=== PATIENT | male | born 1975 | race Caucasian/White ===

== ENCOUNTER 2017-03-08 17:54 | Emergency (ER) | payer BC, OTHER ==
[2017-03-08 19:24] VITALS: BP 124/81
[2017-03-08] MEDS ORDERED: Sulfamethox/Trimethoprim DS 800/160* TAB PO ONE (20:49)
--- NOTE | 2017-03-08 20:56 | ED ---
Skin Complaint - HPI Summary HPI Summary: 41 yr old male with complaint of redness and itching to the lower abdominal wall. Onset three days ago. Denies fever, chills. has no other complaints. Does not feel ill. No drainage from area. - History of Current Complaint Chief Complaint: UCSkin Time Seen by Provider: 03/08/17 20:44 Stated Complaint: SKIN COMPLAINT STOMACH Pain Intensity: 6 - Allergy/Home Medications Allergies/Adverse Reactions: Allergies Allergy/AdvReac Type Severity Reaction Status Date / Time Codeine AdvReac Intermediate Vomiting Verified 03/08/17 19:16 PMH/Surg Hx/FS Hx/Imm Hx Endocrine/Hematology History: Reports: Hx Diabetes - WAS TOLD HE HAS IT Cardiovascular History: Reports: Hx Hypertension - Surgical History Surgery Procedure, Year, and Place: GALL BLADDER REMOVAL, HERNIA REPAIR A BABY. 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 Denies: Traveled Outside the [place] in Last 30 Days - Family History Known Family History: Positive: Hypertension, Diabetes - Social History Alcohol Use: Rare Substance Use Type: Reports: None Smoking Status (MU): Never Smoked Tobacco Review of Systems Constitutional: Negative Positive: Other - cellulitis abdominal wall All Other Systems Reviewed And Are Negative: Yes Physical Exam Triage Information Reviewed: Yes Vital Signs On Initial Exam: Initial Vitals Temp Pulse Resp BP Pulse Ox 98.3 F 92 20 124/81 98 03/08/17 19:18 03/08/17 19:18 03/08/17 19:18 03/08/17 19:18 03/08/17 19:18 Vital Signs Reviewed: Yes Appearance: Positive: Well-Appearing, No Pain Distress, Obese Skin: Positive: Warm, Other - cellulitis with irriated hair follicle lower abdomen at the belt line. Head/Face: Positive: Normal Head/Face Inspection Eyes: Positive: EOMI ENT: Positive: Pharynx normal Neck: Positive: Supple, Nontender Respiratory/Lung Sounds: Positive: Clear to Auscultation, Breath Sounds Present Cardiovascular: Positive: RRR. Negative: Murmur Abdomen Description: Positive: Nontender, Other: - no abcess. Musculoskeletal: Positive: Strength/ROM Intact Neurological: Positive: Sensory/Motor Intact, Alert, Oriented to Person Place, Time, CN Intact II-III Psychiatric: Positive: Normal - Pauline Coma Scale Best Eye Response: 4 - Spontaneous Best Motor Response: 6 - Obeys Commands Best Verbal Response: 5 - Oriented Coma Scale Total: 15 Diagnostics - Vital Signs Vital Signs Temp Pulse Resp BP Pulse Ox 03/08/17 19:18 98.3 F 92 20 124/81 98 - Laboratory Lab Statement: Any lab studies that have been ordered have been reviewed, and results considered in the medical decision making process. Course/Dx - Course Course Of Treatment: 41 yr old with cellulitis to the lower abdominal wall. Plan bactrim DS and discharge to home. - Diagnoses Provider Diagnoses: Cellulitis Discharge - Discharge Plan Condition: Good Disposition: HOME Prescriptions: Sulfamethox/Trimethoprim DS* [Bactrim DS 800/160 TAB*] 1 tab PO BID #20 tab Patient Education Materials: Cellulitis (ED) Referrals: Jenna Najera PA [Primary Care Provider] - 2 Days
== END 2017-03-08 20:57 | disposition home or self-care (01) ==
LOC: UCCORT 17:54
DX: L03.311 Cellulitis of abdominal wall (principal); E11.9 Type 2 diabetes mellitus without complications; I10 Essential (primary) hypertension; E66.9 Obesity, unspecified; Z90.49 Acquired absence of other specified parts of digestive tract; Z98.52 Vasectomy status; Z88.5 Allergy status to narcotic agent
CPT/HCPCS: 99212; A9270-GY; G0463

== ENCOUNTER 2017-09-05 09:09 | Emergency (ER) | payer BC, OTHER ==
[2017-09-05 09:23] VITALS: BP 138/71
--- NOTE | 2017-09-05 10:04 | UC ---
Skin Complaint HPI - HPI Summary HPI Summary: RED SORE ON CHIN X 2 DAYS + AREA IS RED PAINFUL STARTED AN INGROWING HAIR ON HIS CHIN NO FEVER, NO CHILLS - History of Current Complaint Chief Complaint: UCSkin Time Seen by Provider: 09/05/17 09:50 Stated Complaint: SKIN COMPLAINT Hx Obtained From: Patient Onset/Duration: Gradual Onset, Lasting Days - 2, Still Present Timing: Constant Onset Severity: Moderate Current Severity: Moderate Pain Intensity: 5 Pain Scale Used: 0-10 Numeric Location: Face Character: Swelling, Pain, Redness, Raised, Painful Aggravating Factor(s): Touch Alleviating Factor(s): Nothing Associated Signs & Symptoms: Positive: Tenderness. Negative: Fever, Chills - Allergy/Home Medications Allergies/Adverse Reactions: Allergies Allergy/AdvReac Type Severity Reaction Status Date / Time codeine Allergy Vomiting Verified 09/05/17 09:21 Review of Systems Constitutional: Negative Eyes: Negative ENT: Negative Respiratory: Negative Is Patient Immunocompromised?: No All Other Systems Reviewed And Are Negative: Yes PMH/Surg Hx/FS Hx/Imm Hx Endocrine History: Diabetes Cardiovascular History: Hypertension - Surgical History Surgical History: Yes Surgery Procedure, Year, and Place: GALL BLADDER REMOVAL, HERNIA REPAIR A BABY. VASECTOMY AND HERNIA REPAIR-09/2014 - Family History Known Family History: Positive: Hypertension, Diabetes - Social History Alcohol Use: Rare Substance Use Type: None Smoking Status (MU): Never Smoked Tobacco Physical Exam Triage Information Reviewed: Yes Appearance: Well-Appearing, No Pain Distress, Well-Nourished Vital Signs: Initial Vital Signs Temp 98.3 F 09/05/17 09:17 Pulse 94 09/05/17 09:17 Resp 16 09/05/17 09:17 BP 138/71 09/05/17 09:17 Pulse Ox 97 09/05/17 09:17 Eye Exam: Normal Eyes: Positive: Conjunctiva Clear ENT: Positive: Normal ENT inspection, Hearing grossly normal, Pharynx normal Neck: Positive: Supple, Nontender, No Lymphadenopathy Respiratory: Positive: Chest non-tender, Lungs clear, Normal breath sounds Cardiovascular: Positive: RRR, No Murmur, Pulses Normal Skin: Positive: Other - + CELLULITIS CHIS, ERYTHEMA, SWELLEN , TENDER Course/Dx - Diagnoses Provider Diagnoses: CELLULITIS FACE Discharge - Sign-Out/Discharge Documenting (check all that apply): Patient Departure - Discharge Plan Condition: Stable Disposition: HOME Prescriptions: Cephalexin CAP* [Keflex CAP*] 500 mg PO TID #30 cap Patient Education Materials: Cellulitis (ED) Referrals: Jenna Najera PA [Primary Care Provider] - 7 Days - Billing Disposition and Condition Condition: STABLE Disposition: Home
== END 2017-09-05 09:58 | disposition home or self-care (01) ==
LOC: UCCORT 09:09
DX: L03.211 Cellulitis of face (principal); Z88.5 Allergy status to narcotic agent; E11.9 Type 2 diabetes mellitus without complications; I10 Essential (primary) hypertension
CPT/HCPCS: 99212; G0463

== ENCOUNTER 2017-12-29 19:56 | Emergency (ER) | payer BC ==
[2017-12-29 21:11] VITALS: BP 120/74
--- NOTE | 2017-12-29 21:20 | UC ---
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 Pt states pain radiates from base of right side occipital bone to upper back and to right shoulder. Neck is painful to move and pt c/o neck stiffness. - History of Current Complaint Chief Complaint: UCUpperExtremity Stated Complaint: NECK PAIN Time Seen by Provider: 12/29/17 21:11 Hx Obtained From: Patient Onset/Duration Of Injury/Symptoms: Hours Mechanism Of Injury: No Known Trauma Timing: Constant Onset/Duration: Sudden Onset, Lasting Hours, Still Present Severity: Moderate Pain Intensity: 4 Character: Dull, Aching, Stiff, Spasmotic Aggravating Factors: Position, Movement Alleviating Factors: Position Associated Signs & Symptoms: Positive: Negative - Risk Factors Meningitis Risk Factors: Negative - Allergies/Home Medications Allergies/Adverse Reactions: Allergies Allergy/AdvReac Type Severity Reaction Status Date / Time codeine Allergy Vomiting Verified 12/29/17 21:02 Home Medications: Home Medications Ferrous Sulfate [Iron] 325 mg PO DAILY 12/29/17 [History Confirmed 12/29/17] Meloxicam [Mobic] 15 mg PO DAILY 12/29/17 [History Confirmed 12/29/17] PMH/Surg Hx/FS Hx/Imm Hx Previously Healthy: Yes - Surgical History Surgical History: Yes Surgery Procedure, Year, and Place: GALL BLADDER REMOVAL, HERNIA REPAIR A BABY. VASECTOMY AND HERNIA REPAIR-09/2014. Tendon repair right index finger - Family History Known Family History: Positive: Hypertension, Diabetes - Social History Occupation: Employed Full-time Lives: With Family Alcohol Use: Rare Substance Use Type: None Smoking Status (MU): Never Smoked Tobacco Have You Smoked in the Last Year: No Review Of Systems Constitutional: Positive: Negative Skin: Positive: Negative Eyes: Positive: Negative ENT: Positive: Negative Respiratory: Positive: Negative Cardiovascular: Positive: Negative Gastrointestinal: Positive: Negative Genitourinary: Positive: Negative Musculoskeletal: Positive: Decreased ROM, Myalgia Neurological: Positive: Negative Psychological: Positive: Negative All Other Systems Reviewed And Are Negative: No Physical Exam Triage Information Reviewed: Yes Appearance: Pain Distress Vital Signs: Initial Vital Signs Temp 97.6 F 12/29/17 21:06 Pulse 81 12/29/17 21:06 Resp 18 12/29/17 21:06 BP 120/74 12/29/17 21:06 Pulse Ox 97 12/29/17 21:06 Vital Signs Reviewed: Yes Eye Exam: Normal ENT: Positive: Hearing grossly normal Neck: Positive: Other: - decreased ROM, Respiratory Exam: Normal Cardiovascular Exam: Normal Musculoskeletal: Positive: ROM Limited @ - neck, Other: - c/o pain with palpation at base of right nixon eoccipital bone and upper back Neurological Exam: Normal Psychological Exam: Normal Skin Exam: Normal Neck Pain Course/Dx - Differential Dx/Diagnosis Differential Dx/HQI/PQRI: Sprain, Strain, Torticollis Provider Diagnoses: torticollis Discharge - Sign-Out/Discharge Documenting (check all that apply): Patient Departure All imaging exams completed and their final reports reviewed: No Studies - Discharge Plan Condition: Stable Disposition: HOME Prescriptions: Cyclobenzaprine TAB* [Flexeril 10 MG TAB*] 10 mg PO Q8H PRN #15 tab PRN Reason: Pain Patient Education Materials: Spasmodic Torticollis (ED) Referrals: Jenna Najera PA [Primary Care Provider] - If Needed - Billing Disposition and Condition Condition: STABLE Disposition: Home
== END 2017-12-29 21:28 | disposition home or self-care (01) ==
LOC: UCCORT 19:56
DX: M43.6 Torticollis (principal); Z88.5 Allergy status to narcotic agent
CPT/HCPCS: 99212; G0463

== ENCOUNTER 2018-05-03 19:57 | Emergency (ER) | payer BC ==
--- OUTSIDE RECORDS SUMMARY | 2018-05-03 20:13 | XMS REPORT | Continuity of Care Document ---
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 Jenna Najera RPAC Primary Care Physician Unavailable Payers Date Identification Numbers Payment Provider Subscriber Policy Number: [id number] Rivera Gordon PayID: [id number] [address] [address] Policy Number: [id number] Rivera Gordon Group Number: [id number] [address] PayID: [id number] [place] [address] Advance Directives Description No Information Available Problems Date Description Provider Status Onset: 07/20/2011 Benign essential hypertension Jenna Najera RPAC Active Onset: 12/22/2010 Obesity Jenna Najera RPAC Active Onset: 07/06/2016 Decreased testosterone level Jenna Najera RPAC Active Note: 2016 Onset: 09/10/2014 Hypertriglyceridemia Jenna Najera RPAC Active Note: with low HDL Onset: 09/10/2014 Hyperglycemia Jenna Najera RPAC Active Note: noted 10/2012 Onset: 11/25/2014 Methicillin resistant Staphylococcus Jenna Najera RPAC Active aureus infection Note: 11/2014 Onset: 11/25/2014 Degenerative joint disease involving Jenna Najera RPAC Active multiple joints Note: dorsal/lumbar spine Onset: 12/22/2010 History of polyp of colon Jenna Najera RPAC Active Note: 2016 SSA/P Onset: 12/22/2010 Gastroesophageal reflux disease Jenna Najera RPAC Active Onset: 08/12/2016 Heartburn Rakesh Baker MD Active Onset: 11/23/2016 Gastroduodenitis Rakesh Baker MD Active Note: with decreased H&H Onset: 01/09/2018 Family history of carcinoma of Jenna Najera [facility] Active esophagus Note: father Onset: 06/13/2017 Cellulitis and abscess of trunk Rhina Chisholm M.D. Resolved Resolved: 10/09/2017 Onset: 09/08/2017 Cellulitis and abscess of face Jenna Najera [facility] Resolved Resolved: 10/09/2017 Family History Date Family Member(s) Observation Comments Father Esophagus Cancer around age 50 Mother CAD First Sister Diabetes First Sister Hypertension First Sister Hypercholesterolemia Second Sister Obesity Second Sister PCOS Second Sister Diabetes Social History Type Date Description Comments Sex Unknown Marital Status Lives With Lives With Children Home Environment Lives With spouse Occupation [employer] Work Status Currently Working Tobacco Use Start: Unknown Never Smoked Cigarettes Smokeless Tobacco Never Used Smokeless Tobacco ETOH Use Currently consumes alcohol socially Recreational Drug Use Denies Drug Use Tobacco Use Start: Unknown End: Patient is a former Quit 15 years ago. smoker Smoking Status Reviewed: 03/27/18 Patient is a former Quit 15 years ago. smoker Allergies, Adverse Reactions, Alerts Date Description Reaction Status Severity Comments 10/07/2010 Codeine nausea Active okay for hydrocodone Medications Medication Date Status Form Strength Qnty SIG Indications Ordering Provider Super B-Complex 02/27/19 Active Tablet 1 po daily Joann 19 (per pt , Jesus, remember) MD Doyle For Him 02/27/19 Active Tablets 1 by mouth Joann 19 every day , Jesus, (per pt if MD remember) Benazepril HCL 01/10/20 Active Tablets 40mg 90tab 1 by mouth Gomez, 18 s every day Lukas [place] Meloxicam 11/25/19 Active Tablets 15mg take one Stoddard, 18 tablet by Mohamud farmer MD every day Acetaminophen 06/07/19 Active Tablets 500mg 540ta 2 by mouth Gomez, Extra Strength 18 bs three Tre, times a M.D. day as needed Hydrocortisone 03/04/19 Active Cream 2.5% 30gm thin layer L03.116 Christiano , 17 to leg Adarsh Morel, rash three DO times a day Pantoprazole 09/11/19 Active Tablets 40mg 180ta 1 by mouth I10 Gomez, Sodium 15 DR bs twice a Tre, day M.D. Iron Ferrous Active Tablets 65mg 1 tablet Unknown Sulfate 00 by mouth daily Aspirin Adult Active Tablets 81mg 1 by mouth Unknown Low Dose 00 DR every day Androderm 11/05/19 Hx Patches 2mg/24HR 30uni One patch Gomez, 18 - 24HR ts to arm or Tre, 11/29/19 chest M.D. 18 daily Androgel 11/05/19 Hx Gel 25mg/2.5G 75gm 1 pump Gomez, 18 - M (1%) actuation Tre, 11/07/19 to skin M.D. 18 daily Androgel 11/04/19 Hx Gel 20.25mg/1 75gm 2 pump Gomez, 18 - .25GM actuations Tre, 11/05/19 (1.62%) applied to M.D. 18 upper arms or chest every day in the morning..: :.. Amoxicillin/Clav 09/07/19 Hx Tablets 875-125mg Take One Unknown ulanate 18 - Tablet By Potassium 10/07/19 Mouth 18 Every 12 Hours Sulfamethoxazole 09/07/19 Hx Tablets 800-160mg Take One Unknown /Trimethoprim DS 18 - Tablet By 10/07/19 Mouth 18 Every 12 Hours Ibuprofen 09/07/19 Hx Tablets 600mg Page, 18 - Jonny, 10/07/19 MD 18 Ibuprofen 200 06/07/19 Hx Tablets 200mg 90tab 1-2 tabs Gomez, 18 - s by mouth Tre, 10/17/19 three M.D. 18 times a day as needed Amoxicillin/Clav 06/07/19 Hx Tablets 875-125mg 20tab 1 tab by L02.214 Gomez, ulanate 18 - s mouth Tre, Potassium 06/23/19 every 12 M.D. 18 hours with food Aleve 03/03/19 Hx Capsules 220mg 2 by mouth Gomez, 18 - every day Tre, 11/25/19 if needed M.D. 18 for pain Citroma 08/13/19 Hx Solution 1.745GM/3 1bott 1 bottle K63.5 Young 17 - 0ML le by mouth MD Samuel Unknown once Dulcolax 08/13/19 Hx Tablets 5mg 4tabs 4 tablets K63.5 Young 17 - DR barb Baker MD Unknown 8pm the day before the procedure Golytely 08/13/19 Hx Solution 236gm 4000m drink half K63.5 Young 17 - Rec l the MD Samuel Unknown evening before and half the morning of the procedure (1 cup every 10') Wrist 07/29/19 Hx Misc One for daily G56.02 Gomez, Splint/Cock-Up/L 17 - use Tre, eft/Canvas/Large 09/27/19 M.D. 17 Androgel 07/20/19 Hx Gel 20.25mg/1 75gm 2 pump Gomez, 17 - .25GM actuations Tre, 10/07/19 (1.62%) applied to M.D. 18 upper arms or chest every day in the morning..: :.. Cephalexin 03/04/19 Hx Tablets 500mg 30tab 1 tab (or L03.116 Christiano 17 - s cap) by Adarsh Morel, 04/05/19 mouth DO 17 three times a day Cefuroxime 01/27/20 Hx Tablets 500mg 20tab 1 tab by Stoney Alvarado 16 - s mouth Adarsh Morel, 03/04/19 twice a DO 17 day Cheratussin ac 01/25/20 Hx Syrup 100-10mg/ 236ml 1-2 Christiano, 16 - 5ML teaspoons Adarsh Morel, 03/04/19 by mouth DO 17 every 4 hour as needed cough Work Note 01/21/20 Hx Evaluated J15.8 Christiano 16 - at Primary Adarsh Morel, 04/05/19 Care for DO 17 pneumonia. Please excuse till 01/25/16 Cyclobenzaprine 11/19/19 Hx Tablets 10mg 90tab 1 by mouth SANDRA Alvarado 15 - s three Adarsh EEarl, 07/14/19 times a DO 16 day as needed muscle spasms Ibuprofen 10/31/19 Hx Tablets 600mg 45tab 1 tablet M77.11 Christiano 15 - s by mouth Adarsh Morel, Unknown three DO times a day with meals. Omeprazole 09/11/19 Hx Capsules 20mg 90cap 1 by mouth Christiano 15 - s every day Adarsh Morel, 09/11/19 DO 15 Benazepril HCL 07/20/19 Hx Tablets 20mg 90tab take one Jason 12 - s tablet by Tre 01/10/20 marleny Gaytan 18 every day Pantoprazole 12/23/19 Hx Tablets 40mg 90tab take one Rutherford, Sodium 11 - DR s tablet by Katia 09/11/19 MD marleny 15 every day Hydrocodone Hx Tablets 5-300mg 1 every 4 Unknown Bitartrate/Aceta 00 - hours as minophen 07/14/19 needed for 16 pain.....[facility] [id number] Hydrocodone-Acet Hx Tablets 10-325mg 1 tab by Unknown aminophen 00 - mouth 11/19/19 every 8 15 hours as needed Sulfamethoxazole Hx Tablets 800-160mg 10tab 1 by mouth Christiano /Trimethoprim DS 00 - s twice a Adarsh Morel, 07/14/19 day DO 16 Levofloxacin Hx Tablets 750mg 1 by mouth Unknown 00 - for 4 days 01/25/20 16 Ibuprofen Hx Capsules 200mg 4 po as Unknown 00 - needed Unknown Aspirin Ec Low Hx Tablets 81mg 1 by mouth Unknown Dose 00 - DR every day 01/10/20 prn Per 18 PT Tylenol Extra Hx Tablets 500mg 1-2 tabs Unknown Strength 00 - by mouth Unknown every 4 hours as needed Medications Administered in Office Medication Date Status Form Strength Qnty SIG Indications Ordering Provider Methylprednisolone 10/30 Administered Injection jony Alvarado Adarsh Morel (Depomedrol) 80mg DO injection Immunizations Description No Information Available Vital Signs Date Vital Result Comment 03/27/2018 10:58am BP Systolic 127 mmHg BP Diastolic 81 mmHg Body Temperature 98.8 F Heart Rate 92 /min Respiratory Rate 20 /min Height 69.25 inches 5'9.25" Weight 334.00 lb BMI (Body Mass Index) 49.0 kg/m2 BSA (Body Surface Area) 2.58 m2 [place] body weight in kilograms 73 kg O2 % BldC Oximetry 98 % Ra Pain Level 0 02/27/2018 5:05pm BP Systolic Sitting Left Arm 127 mmHg BP Diastolic Sitting Left Arm 79 mmHg Heart Rate 92 /min Respiratory Rate 16 /min Height 69.25 inches 5'9.25" Weight 336.00 lb BMI (Body Mass Index) 49.3 kg/m2 BSA (Body Surface Area) 2.58 m2 [place] body weight in kilograms 73 kg O2 % BldC Oximetry 97 % 02/27/2018 3:05pm BP Systolic Sitting Left Arm 118 mmHg BP Diastolic Sitting Left Arm 74 mmHg Body Temperature 99.0 F Heart Rate 86 /min Respiratory Rate 20 /min Height 69.25 inches 5'9.25" Weight 333.00 lb BMI (Body Mass Index) 48.8 kg/m2 BSA (Body Surface Area) 2.57 m2 [place] body weight in kilograms 73 kg O2 % BldC Oximetry 97 % Ra 01/09/2018 2:44pm BP Systolic 145 mmHg BP Diastolic 79 mmHg Body Temperature 97.3 F Heart Rate 94 /min Respiratory Rate 18 /min Height 69.25 inches 5'9.25" Weight 323.25 lb BMI (Body Mass Index) 47.4 kg/m2 BSA (Body Surface Area) 2.54 m2 [place] body weight in kilograms 73 kg O2 % BldC Oximetry 96 % 11/28/2017 9:24am BP Systolic Sitting Left Arm 130 mmHg BP Diastolic Sitting Left Arm 92 mmHg Heart Rate 80 /min Respiratory Rate 18 /min Height 69.25 inches 5'9.25" Weight 326.00 lb BMI (Body Mass Index) 47.8 kg/m2 BSA (Body Surface Area) 2.55 m2 [place] body weight in kilograms 73 kg 10/06/2017 9:55am BP Systolic 120 mmHg BP Diastolic 90 mmHg Body Temperature 98.7 F Heart Rate 82 /min reg Respiratory Rate 24 /min Height 69.25 inches 5'9.25" Weight 312.00 lb BMI (Body Mass Index) 45.7 kg/m2 BSA (Body Surface Area) 2.50 m2 [place] body weight in kilograms 73 kg O2 % BldC Oximetry 97 % ra 09/08/2017 2:11pm BP Systolic Sitting Left Arm 110 mmHg BP Diastolic Sitting Left Arm 60 mmHg Body Temperature 99.4 F Heart Rate 101 /min reg Respiratory Rate 24 /min Height 69.25 inches 5'9.25" Weight 315.00 lb BMI (Body Mass Index) 46.2 kg/m2 BSA (Body Surface Area) 2.51 m2 [place] body weight in kilograms 73 kg O2 % BldC Oximetry 98 % ra 06/22/2017 1:55pm BP Systolic Sitting Right Arm 118 mmHg BP Diastolic Sitting Right Arm 69 mmHg Body Temperature 98.1 F Heart Rate 86 /min Respiratory Rate 18 /min Height 69.25 inches 5'9.25" Weight 335.00 lb BMI (Body Mass Index) 49.1 kg/m2 BSA (Body Surface Area) 2.58 m2 [place] body weight in kilograms 73 kg O2 % BldC Oximetry 95 % Pain Level 0 06/13/2017 1:00pm BP Systolic 146 mmHg BP Diastolic 92 mmHg Body Temperature 98.7 F Heart Rate 96 /min Respiratory Rate 17 /min Height 69.25 inches 5'9.25" Weight 326.38 lb BMI (Body Mass Index) 47.8 kg/m2 BSA (Body Surface Area) 2.55 m2 [place] body weight in kilograms 73 kg O2 % BldC Oximetry 95 % Pain Level 0 06/06/2017 2:04pm BP Systolic Sitting Right Arm 134 mmHg BP Diastolic Sitting Right Arm 74 mmHg Body Temperature 98.4 F Heart Rate 89 /min reg Respiratory Rate 24 /min Height 69.25 inches 5'9.25" Weight 328.00 lb BMI (Body Mass Index) 48.1 kg/m2 BSA (Body Surface Area) 2.56 m2 [place] body weight in kilograms 73 kg O2 % BldC Oximetry 97 % ra 03/03/2017 10:04am BP Systolic Sitting Right Arm 126 mmHg BP Diastolic Sitting Right Arm 76 mmHg Heart Rate 86 /min Height 64.5 inches 5'4.50" Weight 325.00 lb BMI (Body Mass Index) 54.9 kg/m2 BSA (Body Surface Area) 2.42 m2 [place] body weight in kilograms 60 kg O2 % BldC Oximetry 99 % ra 11/23/2016 10:05am BP Systolic Sitting Left Arm 114 mmHg BP Diastolic Sitting Left Arm 72 mmHg Heart Rate 56 /min Respiratory Rate 18 /min Height 64.5 inches 5'4.50" Weight 322.00 lb BMI (Body Mass Index) 54.4 kg/m2 BSA (Body Surface Area) 2.41 m2 [place] body weight in kilograms 60 kg 11/07/2016 2:58pm BP Systolic Sitting Right Arm 142 mmHg BP Diastolic Sitting Right Arm 80 mmHg Heart Rate 82 /min Respiratory Rate 18 /min Height 64.5 inches 5'4.50" Weight 324.00 lb BMI (Body Mass Index) 54.7 kg/m2 BSA (Body Surface Area) 2.41 m2 [place] body weight in kilograms 60 kg O2 % BldC Oximetry 96 % ra 09/26/2016 2:28pm BP Systolic Sitting Left Arm 106 mmHg BP Diastolic Sitting Left Arm 73 mmHg Heart Rate 78 /min Respiratory Rate 20 /min Height 64 inches 5'4" Weight 325.00 lb BMI (Body Mass Index) 55.8 kg/m2 BSA (Body Surface Area) 2.40 m2 [place] body weight in kilograms 59 kg 08/12/2016 11:49am BP Systolic Sitting Left Arm 110 mmHg BP Diastolic Sitting Left Arm 76 mmHg Heart Rate 76 /min Respiratory Rate 20 /min Height 64 inches 5'4" Weight 333.00 lb BMI (Body Mass Index) 57.2 kg/m2 BSA (Body Surface Area) 2.43 m2 [place] body weight in kilograms 59 kg 07/28/2016 9:37am BP Systolic Sitting Right Arm 134 mmHg BP Diastolic Sitting Right Arm 72 mmHg Heart Rate 70 /min Height 64 inches 5'4" Weight 330.00 lb BMI (Body Mass Index) 56.6 kg/m2 BSA (Body Surface Area) 2.42 m2 [place] body weight in kilograms 59 kg O2 % BldC Oximetry 98 % 06/16/2016 2:44pm BP Systolic Sitting Right Arm 136 mmHg BP Diastolic Sitting Right Arm 74 mmHg Height 64 inches 5'4" Weight 334.00 lb BMI (Body Mass Index) 57.3 kg/m2 BSA (Body Surface Area) 2.43 m2 03/04/2016 2:58pm BP Systolic Sitting Right Arm 132 mmHg BP Diastolic Sitting Right Arm 84 mmHg Body Temperature 98.9 F Height 64 inches 5'4" Weight 336.00 lb BMI (Body Mass Index) 57.7 kg/m2 BSA (Body Surface Area) 2.44 m2 01/21/2016 11:43am BP Systolic Sitting Right Arm 132 mmHg BP Diastolic Sitting Right Arm 84 mmHg Body Temperature 98.6 F Height 64 inches 5'4" Weight 321.38 lb BMI (Body Mass Index) 55.2 kg/m2 BSA (Body Surface Area) 2.39 m2 11/18/2014 2:18pm BP Systolic 112 mmHg BP Diastolic 72 mmHg Body Temperature 100.0 F Height 64 inches 5'4" Weight 313.38 lb BMI (Body Mass Index) 53.8 kg/m2 BSA (Body Surface Area) 2.37 m2 10/30/2014 10:54am BP Systolic 136 mmHg BP Diastolic 72 mmHg Body Temperature 98.3 F Heart Rate 95 /min Respiratory Rate 10 /min Height 64 inches 5'4" Weight 317.00 lb BMI (Body Mass Index) 54.4 kg/m2 BSA (Body Surface Area) 2.38 m2 O2 % BldC Oximetry 96 % Ra 10/03/2014 1:43pm BP Systolic 118 mmHg BP Diastolic 70 mmHg Weight 320.38 lb 09/10/2014 1:32pm BP Systolic 144 mmHg BP Diastolic 90 mmHg Height 72 inches 6'0" Weight 322.00 lb BMI (Body Mass Index) 43.7 kg/m2 BSA (Body Surface Area) 2.61 m2 05/02/2013 2:28pm BP Systolic 132 mmHg BP Diastolic 90 mmHg Body Temperature 100.6 F Height 72 inches 6'0" Weight 312.00 lb 10/31/2012 2:41pm Height 72 inches 6'0" Weight 312.00 lb 10/19/2012 1:15pm BP Systolic 128 mmHg BP Diastolic 76 mmHg Heart Rate 72 /min Height 72 inches 6'0" Weight 311.00 lb 11/30/2011 10:59am BP Systolic 138 mmHg BP Diastolic 72 mmHg Weight 308.00 lb 11/30/2011 11:02am Body Temperature 97.9 F 10/08/2010 9:38am Body Temperature 98.6 F Height 72 inches 6'0" Weight 320.00 lb 10/07/2010 3:25pm BP Systolic 140 mmHg BP Diastolic 72 mmHg Body Temperature 98.5 F Height 70 inches 5'10" Weight 320.00 lb Results Test Date Facility Test Result H/L Range Note CBC 03/27/2018 [facility] White Blood 6.2 K/uL N 3.4-10.5 1 W/Automated [address] [place] [address] [phone] Red Blood Count 4.34 M/uL N 4.20-5.80 Hemoglobin 13.0 gm/dL N 12.8-17.0 Hematocrit 38.1 % N 38.0-48.0 Mean Cell Volume 87.8 fl N 80.0-96.0 Mean Corpuscular HGB 30.0 pg N 27.0-33.0 Mean Corpuscular HGB Conc 34.1 g/dL N 31.7-36.0 Platelet Count 248 K/uL N 155-360 Red Cell Distri Width SD 39.8 fl N 36-51 Red Cell Distri Width %CV 12.9 % N 11.6-15.8 Mean Platelet Volume 11.3 fL High 6.6-10.6 Neut% 52.6 % N 33.0-73.0 Lymph % 34.6 % N 20.0-42.0 [place] % 9.1 % N 0.0-10.0 Eo% 3.4 % N 0.0-6.6 Bas% 0.3 % N 0.0-1.1 Neut# 3.25 K/uL N 1.8-7.0 Lymph # 2.14 K/uL N 1.0-4.0 [place] # 0.56 K/uL N 0.0-0.8 Eos # 0.21 K/uL N 0.0-0.5 Baso # 0.02 K/uL N 0.0-0.1 CBC W/Automated Diff 01/05/2018 [facility] White Blood 4.7 K/uL N 3.4-10.[address] [place] [address] [phone] Red Blood Count 4.28 M/uL N 4.20-5.80 Hemoglobin 12.7 gm/dL Low 12.8-17.0 Hematocrit 37.6 % Low 38.0-48.0 Mean Cell Volume 87.9 fl N 80.0-96.0 Mean Corpuscular HGB 29.7 pg N 27.0-33.0 Mean Corpuscular HGB Conc 33.8 g/dL N 31.7-36.0 Platelet Count 231 K/uL N 155-360 Red Cell Distri Width SD 40.9 fl N 36-51 Red Cell Distri Width %CV 13.1 % N 11.6-15.8 Mean Platelet Volume 9.8 fL N 6.6-10.6 Neut% 52.6 % N 33.0-73.0 Lymph % 34.0 % N 20.0-42.0 [place] % 8.7 % N 0.0-10.0 Eo% 4.5 % N 0.0-6.6 Bas% 0.2 % N 0.0-1.1 Neut# 2.47 K/uL N 1.8-7.0 Lymph # 1.60 K/uL N 1.0-4.0 [place] # 0.41 K/uL N 0.0-0.8 Eos # 0.21 K/uL N 0.0-0.5 Baso # 0.01 K/uL N 0.0-0.1 Iron-Tibc-%Sat 01/05/2018 [facility] Serum Iron 71 g/dL N 65-[address] [place] [address] [phone] Total Iron Binding Capacity 294 g/dL N 250-450 Transferrin %Saturation 24 % N 12-57 CBS W/Automated Diff 10/06/2017 [facility] White Blood 5.0 K/uL N 3.4-10.[address] [place] [address] [phone] Red Blood Count 4.32 M/uL N 4.20-5.80 Hemoglobin 12.7 gm/dL Low 12.8-17.0 Hematocrit 37.4 % Low 38.0-48.0 Mean Cell Volume 86.6 fl N 80.0-96.0 Mean Corpuscular HGB 29.4 pg N 27.0-33.0 Mean Corpuscular HGB Conc 34.0 g/dL N 31.7-36.0 Platelet Count 259 K/uL N 155-360 Red Cell Distri Width SD 39.3 fl N 36-51 Red Cell Distri Width %CV 12.8 % N 11.6-15.8 Mean Platelet Volume 11.1 fL High 6.6-10.6 Neut% 55.3 % N 33.0-73.0 Lymph % 26.4 % N 20.0-42.0 [place] % 11.1 % High 0.0-10.0 Eo% 6.8 % High 0.0-6.6 Bas% 0.4 % N 0.0-1.1 Neut# 2.75 K/uL N 1.8-7.0 Lymph # 1.31 K/uL N 1.0-4.0 [place] # 0.55 K/uL N 0.0-0.8 Eos # 0.34 K/uL N 0.0-0.5 Baso # 0.02 K/uL N 0.0-0.1 Iron-Tibc-%Sat 10/06/2017 [facility] Serum Iron 55 g/dL Low 65-[address] [place] [address] [phone] Total Iron Binding Capacity 288 g/dL N 250-450 Transferrin %Saturation 19 % N 12-57 Vitamin B12 And 10/06/2017 [facility] Vitamin B12 513 pg/mL N 193-[address] [place] [address] [phone] Folic Acid 8.7 ng/mL N 3.1-17.5 Laboratory test 10/06/2017 [facility] Sedimentation Rate 37 mm/hr High 0-15 [address] [place] [address] [phone] Laboratory test 10/06/2017 [facility] C-Reactive 31.8 mg/L High <3.[address] Protein,[place] [address] [phone] Uric Acid 6.0 mg/dL N 3.5-7.2 Calcium 8.6 mg/dL N 8.5-10.1 Total Protein 7.6 g/dL N 6.4-8.2 Albumin 3.8 g/dL N 3.4-5.0 Alb/Glob 1.0 ratio Alkaline Phosphatase 127 U/L High 45-117 Rheumatoid Factor Screen < 10.0 IU/mL N 0.0-15.0 Globulin 3.8 g/dL N 1.9-4.3 Antinuclear Antibodies, Ifa Negative . 5 Laboratory 09/08/2017 [facility] Testosterone,Serum 116 Low 264-916 6, 7 test finding [address] ng/[place] [address] [phone] CBS 09/08/2017 [facility] White Blood Count 5.8 K/uL N 3.4-10.5 W/Automated [address] [place] [address] [phone] Red Blood Count 4.13 M/uL Low 4.20-5.80 Hemoglobin 12.3 gm/dL Low 12.8-17.0 Hematocrit 36.2 % Low 38.0-48.0 Mean Cell Volume 87.7 fl N 80.0-96.0 Mean Corpuscular HGB 29.8 pg N 27.0-33.0 Mean Corpuscular HGB Conc 34.0 g/dL N 31.7-36.0 Platelet Count 273 K/uL N 155-360 Red Cell Distri Width SD 39.3 fl N 36-51 Red Cell Distri Width %CV 12.6 % N 11.6-15.8 Mean Platelet Volume 11.6 fL High 6.6-10.6 Neut% 63.8 % N 33.0-73.0 Lymph % 21.8 % N 20.0-42.0 [place] % 8.7 % N 0.0-10.0 Eo% 5.5 % N 0.0-6.6 Bas% 0.2 % N 0.0-1.1 Neut# 3.68 K/uL N 1.8-7.0 Lymph # 1.26 K/uL N 1.0-4.0 [place] # 0.50 K/uL N 0.0-0.8 Eos # 0.32 K/uL N 0.0-0.5 Baso # 0.01 K/uL N 0.0-0.1 Basic Metabolic Panel 09/08/2017 [facility] Glucose 158 mg/dL High 74-[address] [place] [address] [phone] BUN 15 mg/dL N 7-18 Creatinine 1.3 mg/dL N 0.6-1.3 Glom Filtration Rate, Estimate >60 mL/min >60 If >60 mL/min >60 8 BUN/Creat 11.5 ratio Sodium 142 mmol/L N 136-145 Potassium 4.1 mmol/L N 3.5-5.1 Chloride 106 mmol/L N 98-107 Carbon Dioxide 27 mmol/L N 21-32 Anion Gap 9 mEq/L N 8-16 Calcium 8.4 mg/dL Low 8.5-10.1 Glycohemoglobin 06/06/2017 [facility] Glycohemoglobin 6.2 % N 4.2-6.3 9, [address] (A1c) [place] [address] [phone] eAG 131 mg/dL Basic Metabolic Panel 06/06/2017 [facility] Glucose 96 mg/dL N 74-[address] [place] [address] [phone] BUN 15 mg/dL N 7-18 Creatinine 0.9 mg/dL N 0.6-1.3 Glom Filtration Rate, Estimate >60 mL/min >60 If >60 mL/min >60 11 BUN/Creat 16.6 ratio Sodium 140 mmol/L N 136-145 Potassium 4.4 mmol/L N 3.5-5.1 Chloride 103 mmol/L N 98-107 Carbon Dioxide 27 mmol/L N 21-32 Anion Gap 10 mEq/L N 8-16 Calcium 9.3 mg/dL N 8.5-10.1 CBS W/Automated Diff 06/06/2017 [facility] White Blood 8.3 K/uL N 3.4-10.[address] [place] [address] [phone] Red Blood Count 4.56 M/uL N 4.20-5.80 Hemoglobin 13.5 gm/dL N 12.8-17.0 Hematocrit 39.0 % N 38.0-48.0 Mean Cell Volume 85.5 fl N 80.0-96.0 Mean Corpuscular HGB 29.6 pg N 27.0-33.0 Mean Corpuscular HGB Conc 34.6 g/dL N 31.7-36.0 Platelet Count 280 K/uL N 155-360 Red Cell Distri Width SD 40.1 fl N 36-51 Red Cell Distri Width %CV 13.1 % N 11.6-15.8 Mean Platelet Volume 11.4 fL High 6.6-10.6 Neut% 55.8 % N 33.0-73.0 Lymph % 30.5 % N 20.0-42.0 [place] % 9.6 % N 0.0-10.0 Eo% 3.9 % N 0.0-6.6 Bas% 0.2 % N 0.0-1.1 Neut# 4.60 K/uL N 1.8-7.0 Lymph # 2.52 K/uL N 1.0-4.0 [place] # 0.79 K/uL N 0.0-0.8 Eos # 0.32 K/uL N 0.0-0.5 Baso # 0.02 K/uL N 0.0-0.1 Testosterone,Free/Weakly 06/06/2017 [facility] Testosterone,Serum 162 Low 264- 9[address] ng/[place] [address] [phone] Testosterone,%Free/Weakly BND 30.4 % 9.0-46.0 Testosterone,Free Weakly Bound 49.2 ng/dL 40.0-250.0 13 Laboratory test 06/06/2017 [facility] Thyroid Stim 1.93 N 0.30-4.[address] Hormone uIU/[place] [address] [phone] Testosterone,Fr 03/03/2017 [facility] Testosterone 629 ng/dL 264-916 14, 15 ee/Weakly Bound [address] ,[place] [address] [phone] Testosterone,%Free/Weakly BND 39.4 % 9.0-46.0 Testosterone,Free Weakly Bound 247.8 ng/dL 40.0-250.0 16 CBS W/Automated Diff 03/03/2017 [facility] White Blood 6.0 K/uL N 3.4-10.[address] [place] [address] [phone] Red Blood Count 4.35 M/uL N 4.20-5.80 Hemoglobin 12.9 gm/dL N 12.8-17.0 Hematocrit 38.4 % N 38.0-48.0 Mean Cell Volume 88.3 fl N 80.0-96.0 Mean Corpuscular HGB 29.7 pg N 27.0-33.0 Mean Corpuscular HGB Conc 33.6 g/dL N 31.7-36.0 Platelet Count 242 K/uL N 155-360 Red Cell Distri Width SD 41.9 fl N 36-51 Red Cell Distri Width %CV 13.3 % N 11.6-15.8 Mean Platelet Volume 11.7 fL High 6.6-10.6 Neut% 56.4 % N 33.0-73.0 Lymph % 29.0 % N 20.0-42.0 [place] % 8.8 % N 0.0-10.0 Eo% 5.6 % N 0.0-6.6 Bas% 0.2 % N 0.0-1.1 Neut# 3.41 K/uL N 1.8-7.0 Lymph # 1.75 K/uL N 1.0-4.0 [place] # 0.53 K/uL N 0.0-0.8 Eos # 0.34 K/uL N 0.0-0.5 Baso # 0.01 K/uL N 0.0-0.1 Testosterone,Free/Weakly 11/07/2016 [facility] Testosterone,Serum 118 Low 264- 916 [address] ng/[place] [address] [phone] Testosterone,%Free/Weakly BND 28.1 % 9.0-46.0 Testosterone,Free Weakly Bound 33.2 ng/dL Low 40.0-250.0 18 CBS W/Automated Diff 11/07/2016 [facility] White Blood 7.6 K/uL N 3.4-10.[address] [place] [address] [phone] Red Blood Count 4.25 M/uL N 4.20-5.80 Hemoglobin 12.6 gm/dL Low 12.8-17.0 Hematocrit 37.2 % Low 38.0-48.0 Mean Cell Volume 87.5 fl N 80.0-96.0 Mean Corpuscular HGB 29.6 pg N 27.0-33.0 Mean Corpuscular HGB Conc 33.9 g/dL N 31.7-36.0 Platelet Count 264 K/uL N 150-400 Red Cell Distri Width SD 39.4 fl N 36-51 Red Cell Distri Width %CV 12.7 % N 11.6-15.8 Mean Platelet Volume 11.3 fL High 6.6-10.6 Neut% 51.7 % N 33.0-73.0 Lymph % 34.5 % N 20.0-42.0 [place] % 8.8 % N 0.0-10.0 Eo% 4.7 % N 0.0-6.6 Bas% 0.3 % N 0.0-1.1 Neut# 3.92 K/uL N 1.8-7.0 Lymph # 2.62 K/uL N 1.0-4.0 [place] # 0.67 K/uL N 0.0-0.8 Eos # 0.36 K/uL N 0.0-0.5 Baso # 0.02 K/uL N 0.0-0.1 Laboratory test 06/16/2016 [facility] Prostate 0.34 < 4.0 19, [address] Specific ng/[place] [address] Antigen [phone] Testosterone,Fr 06/16/2016 [facility] Testosterone, 133 ng/dL Low 348-119 ee/Weakly Bound [address] Serum [address] [place] [address] [phone] Comment (SEE NOTE) 21 Testosterone,%Free/Weakly BND 31.7 % 9.0-46.0 Testosterone,Free Weakly Bound 42.2 ng/dL 40.0-250.0 22 CBS W/Automated Diff 06/16/2016 [facility] White Blood 7.0 K/uL N 3.4-10.[address] Count [place], [place] [id number] [phone] Red Blood Count 4.21 M/uL N 4.20-5.80 Hemoglobin 12.5 gm/dL Low 12.8-17.0 Hematocrit 36.7 % Low 38.0-48.0 Mean Cell Volume 87.2 fl N 80.0-96.0 Mean Corpuscular HGB 29.7 pg N 27.0-33.0 Mean Corpuscular HGB Conc 34.1 g/dL N 31.7-36.0 Platelet Count 259 K/uL N 150-400 Red Cell Distri Width SD 38.6 fl N 36-51 Red Cell Distri Width %CV 12.5 % N 11.6-15.8 Mean Platelet Volume 11.9 fL High 6.6-10.6 Neut% 52.9 % N 33.0-73.0 Lymph % 35.5 % N 20.0-42.0 Desoto % 8.3 % N 0.0-10.0 Eo% 3.0 % N 0.0-6.6 Bas% 0.3 % N 0.0-1.1 Neut# 3.68 K/uL N 1.8-7.0 Lymph # 2.47 K/uL N 1.0-4.0 [place] # 0.58 K/uL N 0.0-0.8 Eos # 0.21 K/uL N 0.0-0.5 Baso # 0.02 K/uL N 0.0-0.1 LDL Cholesterol Profile 06/16/2016 [facility] Cholesterol 179 mg/dL <200 23 [address] [place] [address] [phone] Triglycerides 349 mg/dL High <150 24 HDL Cholesterol 28 mg/dL Low >40 25 LDL-Cholesterol 81 mg/dL < 100 26 Comprehensive Metabolic 06/16/2016 [facility] Glucose 122 mg/dL High 74-106 Panel [address] [place] [address] [phone] BUN 12 mg/dL N 7-18 Creatinine 1.1 mg/dL N 0.6-1.3 Glom Filtration Rate, Estimate >60 mL/min >60 If >60 mL/min >60 27 BUN/Creat 10.9 ratio Sodium 141 mmol/L N 136-145 Potassium 4.1 mmol/L N 3.5-5.1 Chloride 107 mmol/L N 98-107 Carbon Dioxide 32 mmol/L N 21-32 Anion Gap 2 mEq/L Low 8-16 Calcium 8.3 mg/dL Low 8.5-10.1 Total Protein 7.1 g/dL N 6.4-8.2 Albumin 3.5 g/dL N 3.4-5.0 Globulin 3.6 g/dL N 1.9-4.3 Alb/Glob 1.0 ratio Bilirubin,Total 0.2 mg/dL N 0.2-1.0 Sgot/Ast 22 U/L N 15-37 SGPT/Alt 43 U/L N 12-78 Alkaline Phosphatase 95 U/L N 45-117 Routine Culture W/ Gram 11/18/2014 [facility] Gram Stain See Note 28 Stain [address] [place] [address] [phone] Aerobic Culture See Note 29 Laboratory test 09/10/2014 N2N/CCD Import Basophils # (Auto) 0.02 Low 0.1 -0.2 finding Basophils (%) (Auto) 0.4 0.1-1.0 Eosinophils # (Auto) 0.18 0.0-0.5 Eosinophils (%) (Auto) 3.3 0.0-5.0 Estimated Average Glucose (eAG) 128 Hemoglobin A1c 6.1 4.2-6.3 Lymphocytes # (Auto) 2.03 1.8-7.0 Lymphocytes (%) (Auto) 36.8 17.0-56.0 Monocytes # (Auto) 0.67 0.0-0.8 Monocytes (%) (Auto) 12.2 High 0.0-10.0 Neutrophils # (Auto) 2.61 1.8-7.0 Neutrophils (%) (Auto) 47.3 33.0-73.0 RDW Coefficient of Variation 12.5 11.6-15.8 Red Cell Distribution Width 38.3 36-51 Sodium Level 140 136-145 Basic Metabolic Panel 09/10/2014 [facility] Glucose 122 mg/dL High 74-[address] [place] [address] [phone] BUN 19 mg/dL High 7-18 Creatinine 1.0 mg/dL 0.6-1.3 Glom Filtration Rate, Estimate >60 mL/min >60 If >60 mL/min >60 30 BUN/Creat 19.0 ratio Sodium 140 mmol/L 136-145 Potassium 3.9 mmol/L 3.5-5.1 Chloride 106 mmol/L 98-107 Carbon Dioxide 26 mmol/L 21-32 Anion Gap 8 mEq/L 8-16 Calcium 8.7 mg/dL 8.5-10.1 CBC W/Automated Diff 09/10/2014 [facility] White Blood 5.5 K/uL 3.4-10.[address] [place] [address] [phone] Red Blood Count 4.28 M/uL 4.20-5.80 Hemoglobin 12.5 gm/dL Low 12.8-17.0 Hematocrit 37.0 % Low 38.0-48.0 Mean Cell Volume 86.4 fl 80.0-96.0 Mean Corpuscular HGB 29.2 pg 27.0-33.0 Mean Corpuscular HGB Conc 33.8 g/dL 31.7-36.0 Platelet Count 252 K/uL 150-400 Red Cell Distri Width SD 38.3 fl 36-51 Red Cell Distri Width %CV 12.5 % 11.6-15.8 Mean Platelet Volume 11.1 fL High 6.6-10.6 Neut% 47.3 % 33.0-73.0 Lymph % 36.8 % 17.0-56.0 Desoto % 12.2 % High 0.0-10.0 Eo% 3.3 % 0.0-5.0 Bas% 0.4 % 0.1-1.0 Neut# 2.61 K/uL 1.8-7.0 Lymph # 2.03 K/uL 1.8-7.0 Desoto # 0.67 K/uL 0.0-0.8 Eos # 0.18 K/uL 0.0-0.5 Baso # 0.02 K/uL Low 0.1-0.2 Glycohemoglobin A1c 09/10/2014 [facility] Glycohemoglobin 6.1 % 4.2-6.[address] (A1c) [place], [place] [id number] [phone] eAG 128 mg/dL Basic Metabolic Panel 05/02/2013 N2N/CCD Import Anion Gap 8 mEq/L 8-16 BUN 11 mg/dL 5-23 BUN/Creat 12.2 ratio Calcium 8.6 mg/dL 8.5-10.1 Carbon Dioxide 29 mEq/L 18-29 Chloride 103 mmol/L 98-107 Creatinine 0.9 mg/dL 0.5-1.4 Glom Filtration Rate, Estimate >60 mL/min >60 Glucose 91 mg/dL 76-115 If >60 mL/min >60 32 Potassium 3.7 mmol/L 3.5-5.1 Sodium 136 mmol/L 136-145 CBC W/Automated Diff 05/02/2013 N2N/CCD Import Bas% 0.4 % 0.1-1.0 Baso # 0.02 K/uL Low 0.1-0.2 Eo% 2.9 % 0.0-5.0 Eos # 0.15 K/uL 0.0-0.5 Hematocrit 39.9 % 38.0-48.0 Hemoglobin 13.6 gm/dL 12.8-17.0 Lymph # 1.65 K/uL 1.2-4.0 Lymph % 32.1 % 17.0-56.0 Mean Cell Volume 85.6 fl 80.0-96.0 Mean Corpuscular HGB 29.2 pg 27.0-33.0 Mean Corpuscular HGB Conc 34.1 g/dL 31.7-36.0 Mean Platelet Volume 11.5 fL High 6.6-10.6 [place]oto # 0.73 K/uL High 0.0-0.6 [place] % 14.2 % High 0.0-10.0 Neut# 2.59 K/uL 1.8-7.0 Neut% 50.4 % 33.0-73.0 Platelet Count 250 K/uL 150-400 Red Blood Count 4.66 M/uL 4.20-5.80 Red Cell Distri Width %CV 12.6 % 11.6-15.8 Red Cell Distri Width SD 38.1 fl 36-51 White Blood Count 5.1 K/uL 3.4-10.5 Glycohemoglobin A1c 05/02/2013 N2N/CCD Import Glycohemoglobin 6.2 % High 4.8-6.0 33 (A1c) eAG 131 mg/dL LDL Cholesterol Profile 05/02/2013 N2N/CCD Import Cholesterol 165 mg/dL 120-200 HDL Cholesterol 24 mg/dL Low 29-83 LDL-Cholesterol 68 mg/dL 62-185 Triglycerides 367 mg/dL High 16-231 Laboratory test 10/19/2012 N2N/CCD Import Hemoglobin A1c 6.1 % High Less than 34 finding 6.0 TSH (Thyroid Stimulating Horm) 1.20 miu/mL 0.34-5.60 Basic Metabolic Panel 10/19/2012 N2N/CCD Import Anion Gap 8.0 mmol/L 2- 11 BUN/Creatinine Ratio 15.0 8-20 Blood Urea Nitrogen 15 mg/dL 6-24 Calcium 9.3 mg/dL 8.1-9.9 Chloride 101 mmol/L 101-111 Co2 Carbon Dioxide 25.0 mmol/L 22-32 Creatinine 1.00 mg/dL 0.50-1.40 Egfr 108.1 >60 35 Egfr Non- 84.1 >60 Glucose 117 mg/dL High 70-100 Potassium 4.0 mmol/L 3.5-5.0 Sodium 134 mmol/L 133-145 CBC Auto Diff 10/19/2012 N2N/CCD Import Abs Basophils 0 10^3/uL 0-0.2 Abs Eosinophils 0.2 10^3/uL 0-0.6 Abs Lymphocytes 2.2 10^3/uL 1.0-4.8 Abs Monocytes 0.7 10^3/uL 0-0.8 Abs Neutrophils 4.3 10^3/uL 1.5-7.7 Abs Nucleated RBC 0.01 10^3/uL Basophil % 0.3 % 0-2 Eosinophil % 2.7 % 0-6 Granulocyte % 58.3 % 38-83 Hematocrit 39 % Low 42-52 Hemoglobin 13.5 g/dL Low 14.0-18.0 Lymphocyte % 29.9 % 25-47 Mean Corpuscular HGB Conc 35 g/dL 31-36 Mean Corpuscular Hemoglobin 30 pg 27-31 Mean Corpuscular Volume 86 fL 80-94 Mean Platelet Volume 10 um3 7.4-10.4 Monocyte % 8.8 % 1-9 Nucleated Red Blood Cells % 0.1 Platelet Count 293 10^3/uL 150-450 Red Blood Count 4.50 10^6/uL 4.0-5.4 Red Cell Distribution Width 12 % 10.5-15 White Blood Count 7.4 10^3/uL 4.8-10.8 Lipid Profile 10/19/2012 N2N/CCD Import Cholesterol 217 mg/dL High Less than (Trig/Chol/HDL) 200 Cholesterol/HDL Ratio 6.6 Average High 1-4.44 HDL Cholesterol 33 mg/dL Low 40-60 36 LDL Cholesterol 120.0 High Less Than 100 37 Triglycerides 320 mg/dL High 40-200 Liver Function Panel 10/19/2012 N2N/CCD Import Albumin 4.0 g/dL 3.6-5.4 Albumin/Globulin Ratio 1.3 1-3 Alkaline Phosphatase 80 U/L 30-110 Alt 25 U/L 14-54 Ast 22 U/L 12-42 Direct Bilirubin 0.1 mg/dL 0.1-0.5 Globulin 3.1 g/dL 2-4 Indirect Bilirubin 0.4 mg/dL 0.3-1.0 Total Bilirubin 0.5 mg/dL 0.4-1.5 Total Protein 7.1 g/dL 6.2-8.1 1 K62.5 2 D64.9 3 M25.50 D64.9 4 Method: Sediplast Modified Westergren 5 Negative <1:80 Borderline 1:80 Positive >1:80 Performed at: RN - [facility] [place] [address], [place], [place] [id number] [employer]: Vero Milligan MD, Phone: [phone] 6 E29.1,I10 7 Adult male reference interval is based on a population of healthy nonobese males (BMI <30) between 19 and 39 years old. Patricia et.al. JCEM 2017,102;2445-1670. PMID: [id number]. Performed at: [facility] [id number] [employer]: Vero Milligan MD, Phone: [phone] Note: Persistent reduction for 3 months or more in an eGFR <60 mL/min/1.73 m2 defines CKD. Patients with eGFR values >/=60 mL/min/1.73 m2 may also have CKD if evidence of persistent proteinuria is present. The original MDRD equation for estimated GFR is not valid for patients less than 18 years of age. Additional information may be found at www.kdoqi.org. 9 Z68.42,E29.1,I10 10 Elevated levels of HbA1c suggest the need for more aggressive treatment of glycemia. The [place] [employer] recommends that a primary goal of therapy should be a HbA1c of <7% and that physicians should re-evaluate the treatment regimen in patients with HbA1c values consistently >8%. 11 Note: Persistent reduction for 3 months or more in an eGFR <60 mL/min/1.73 m2 defines CKD. Patients with eGFR values >/=60 mL/min/1.73 m2 may also have CKD if evidence of persistent proteinuria is present. The original MDRD equation for estimated GFR is not valid for patients less than 18 years of age. Additional information may be found at www.kdoqi.org. 12 Adult male reference interval is based on a population of healthy nonobese males (BMI <30) between 19 and 39 years old. Patricia, et.al. JCEM 2017,102;2489-1760. PMID: [id number]. 13 Performed at: [facility] [address] [id number] [employer]: Vero Milligan MD, Phone: [phone] Performed at: [address] [id number] [employer]: Juanjo Adam MD, Phone: [phone] 14 E29.1 15 Adult male reference interval is based on a population of healthy nonobese males (BMI <30) between 19 and 39 years old. Patricia, et.al. [facility] 2017,102;7422-6400. PMID: [id number]. 16 Performed at: [address] [id number] [employer]: Vero Milligan MD, Phone: [phone] Performed at: [address] [id number] [employer]: Juanjo Adam MD, Phone: [phone] 17 Adult male reference interval is based on a population of healthy nonobese males (BMI <30) between 19 and 39 years old. Patricia, et.al. [facility] 2017,102;2464-0187. PMID: [id number]. 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 Values obtained from different assay methods cannot be used interchangeably. Method: Siemens Dimension Brightwaters Chemiluminescent immunoassay. 21 Adult male reference interval is based on a population of lean males up to 40 years old. 22 Performed at: [address] [id number] [employer]: Vero Milligan MD, Phone: [phone] Performed at: [address] [id number] [employer]: Juanjo Adam MD, Phone: [phone] 23 Reference Guidelines*: Desirable: ........... < 200 mg/dL Borderline High: ..... 200-239 mg/dL High: ................ >=240 mg/dL * The National Cholesterol Education Program (NCEP) 24 Reference Guidelines*: Normal: ............. < 150 mg/dL Borderline High: .... 150-199 mg/dL High: ............... 200-499 mg/dL Very High: .......... > 500 mg/dL * Source: National Cholesterol Education Program (NCEP) 25 Reference Guidelines*: Low HDL: ..... < 40 mg/dL Normal: ..... 40-60 mg/dL Desirable: ... > 60 mg/dL *The National Cholesterol Education Program(NCEP) 26 Reference Guidelines*: Optimal:........... <100 mg/dL Near Optimal....... 100-129 mg/dL Borderline High.... 130-159 mg/dL High............... 160-189 mg/dL Very High.......... >=190 mg/dL * Source: National Cholesterol Education Program (NCEP) 27 Note: Persistent reduction for 3 months or more in an eGFR <60 mL/min/1.73 m2 defines CKD. Patients with eGFR values >/=60 mL/min/1.73 m2 may also have CKD if evidence of persistent proteinuria is present. The original MDRD equation for estimated GFR is not valid for patients less than 18 years of age. Additional information may be found at www.kdoqi.org. 28 GRAM STAIN ! MODERATE WHITE BLOOD CELLS ! MODERATE GRAM POSITIVE COCCI ! 29 Organism 1 ! METHICILLIN RESISTANT S.AUREUS Quantity ! MANY METHICILLIN RESISTANT S.AUREUS Target Route Dose M.I.C. RX AB COST ------ ----- -------- ------ -- ------ OXACILLIN >=4 R * TETRACYCLINE <=1 S TRIMETHOPRIM/SULFAMETHOXAZOLE BLOOD PO DS <=10 S 0.39 AMOXICILLIN R ERYTHROMYCIN >=8 R CLINDAMYCIN BLOOD <=0.25 S This Staphylococcal species does not demonstrate inducible clindamycin resistance in vitro. MOXIFLOXACIN 2 S CEFACLOR R AZITHROMYCIN R PIPERACILLIN R VANCOMYCIN <=0.5 S 30 Note: Persistent reduction for 3 months or more in an eGFR <60 mL/min/1.73 m2 defines CKD. Patients with eGFR values >/=60 mL/min/1.73 m2 may also have CKD if evidence of persistent proteinuria is present. The original MDRD equation for estimated GFR is not valid for patients less than 18 years of age. Additional information may be found at www.kdoqi.org. 31 Elevated levels of HbA1c suggest the need for more aggressive treatment of glycemia. The [place] [employer] recommends that a primary goal of therapy should be a HbA1c of <7% and that physicians should re-evaluate the treatment regimen in patients with HbA1c values consistently >8%. 32 Note: Persistent reduction for 3 months or more in an eGFR <60 mL/min/1.73 m2 defines CKD. Patients with eGFR values >/=60 mL/min/1.73 m2 may also have CKD if evidence of persistent proteinuria is present. The original MDRD equation for estimated GFR is not valid for patients less than 18 years of age. Additional information may be found at www.kdoqi.org. 33 A1c value between 5.7% and 6.4% is considered at increased risk for diabetes. A1c value greater than 6.5 % is considered essentially diagnostic for Type II diabetes. Current guidelines recommend a treatment goal of <7% for diabetic patients. This method will measure glycosylated hemoglobin variants, HbS, HbG , HbH, HbWayne, HbC, HbE, etc. Other hemoglobin- opathies may give incorrect results with this test. 34 Therapeutic target for the treatment of diabetes Mellitus patients is <7% HBA1C, and in selective patients <6.0%.Please refer to [place] [employer] Diabetic care guidelines for further information. 35 Because ethnic data is not always readily available, this report includes an eGFR for both -Americans and non- Americans. The National Kidney Disease Education Program (NKDEP) does not endorse the use of the MDRD equation for patients that are not between the ages of 18 and 70, are , have extremes of body size, muscle mass, or nutritional status, or are non- or non-. According to the National Kidney Foundation, irrespective of diagnosis, the stage of the disease is based on the level of kidney function: Stage Description GFR(mL/min/1.73 m(2)) 1 Kidney damage with normal or decreased GFR 90 2 Kidney damage with mild decrease in GFR 60- 89 3 Moderate decrease in GFR 30-59 4 Severe decrease in GFR 15-29 5 Kidney failure <15 (or dialysis) 36 HDL Interpretation: Undesirable: High Risk: Less than 40 mg/dL Desirable: Low Risk: Greater than 60 mg/dL 37 LDL Interpretation: Low Risk Optimal Level: LDL Less than 100 mg/dL Near or Above Optimal: LDL 100-129 mg/dL Borderline High Risk: LDL 130-159 mg/dL High Risk : LDL 160-189 mg/dL Very High Risk: LDL Greater than 189 mg/dL Procedures Date Code Description Status 03/27/2018 43504 Anoscopy Completed 08/30/2016 95098 Colonoscopy With Biopsy Completed 08/30/2016 07499 EGD With Biopsy Completed 08/30/2016 [id number] Colonoscopy Completed 10/30/2014 82118 Injection, Tendon Origin/Insertion Completed 10/13/2014 00704 Anesthesia, Repair Hernia Lower Abdomen Completed 10/07/2014 85745 EKG Interpretation And Report Only Completed 10/08/2008 [id number] Colonoscopy Completed 04/07/2008 14166 Colonoscopy With Polypectomy Completed 04/07/2008 [id number] Colonoscopy Completed 02/18/2008 15778 Colonoscopy With Biopsy Completed 03/11/2003 30986 Photography Anterior Segment W/Fluorescein Angiography Completed 05/09/2001 22888 Photography Anterior Segment W/Fluorescein Angiography Completed 04/03/2001 21080 Photography Anterior Segment W/Fluorescein Angiography Completed 02/28/2001 62045 Photography Anterior Segment W/Fluorescein Angiography Completed 01/24/2001 06674 Photography Anterior Segment W/Fluorescein Angiography Completed Encounters Type Date Location Provider Dx Diagnosis Office Visit 03/27/2018 Jesus Walls, K62.5 Hemorrhage of anus 10:45a MD and rectum Office Visit 02/27/2018 [facility], I10 Essential (primary) 2:[facility]p [facility] Visit 02/27/2018 Jesus Walls, K21.9 Gastro-esophageal 4:30p reflux disease without esophagitis K63.5 Polyp of colon E66.09 Other obesity due to excess calories Office Visit 01/09/2018 2:45p [facility], D50.9 Iron deficiency Office [facility] anemia, unspecified I10 Essential (primary) hypertension M25.50 Pain in unspecified joint Office Visit 10/06/2017 10:00a [facility], E29.1 Testicular Office [facility] hypofunction D64.9 Anemia, unspecified M25.50 Pain in unspecified joint I10 Essential (primary) hypertension Office Visit 09/08/2017 2:30p [facility], L03.211 Cellulitis of Office [facility] face E29.1 Testicular hypofunction Office Visit 06/22/2017 1:45p [facility], 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 cavernosum and penis Office Visit 06/06/2017 2:00p [facility], I10 Essential ( primary) Office [facility] hypertension E29.1 Testicular hypofunction L02.214 Cutaneous abscess of groin Z68.42 Body mass index (BMI) 45.0-49.9, adult Office Visit 03/03/2017 9:45a [facility], I10 Essential ( primary) Office [facility] hypertension E29.1 Testicular hypofunction L84 Corns and callosities Office Visit 11/23/2016 10:00a DAYSI Baker MD K63.5 Polyp of colon K21.0 Gastro-esophageal reflux disease with esophagitis K29.70 Gastritis, unspecified, without bleeding Office Visit 11/07/2016 2:30p [facility], I10 Essential ( primary) Office [facility] hypertension E29.1 Testicular hypofunction Office Visit 09/26/2016 2:15p [facility], M79.606 Pain in leg, Office [facility] unspecified I10 Essential (primary) hypertension Office Visit 08/12/2016 11:15a DAYSI Baker MD K63.5 Polyp of colon R19.5 Other fecal abnormalities R12 Heartburn Office Visit 07/28/2016 9:30a [facility], G56.02 Carpal tunnel Office [facility] syndrome, left upper limb Office Visit 06/16/2016 2:45p [facility], I10 Essential Office [facility] (primary) hypertension K21.9 Gastro-esophageal reflux disease without esophagitis F52.21 Male erectile disorder Office Visit 03/04/2016 2:45p [facility], J06.9 Acute upper Office [facility] respiratory infection, unspecified L03.116 Cellulitis of left lower limb Office Visit 01/21/2016 11:00a [facility] J15.8 Pneumonia due to Office [facility] other specified bacteria Office Visit 11/18/2014 1:45p [facility], M54.5 Low back pain Office [facility] L02.411 Cutaneous abscess of right axilla Office Visit 10/30/2014 10:40a [facility] Alvarado 726.32 Epicondylitis Office E., DO Lateral M77.11 Lateral epicondylitis, right elbow Office Visit 10/03/2014 1:30p [facility], 401.1 Hypertension Benign Office [facility] 530.81 Esophageal Reflux 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 726.32 Epicondylitis Lateral Office Visit 09/10/2014 1:30p [facility], 401.1 Hypertension Benign Office Jenna, RPAC 530.81 Esophageal Reflux 790.6 Abnormal Blood Chemistry Other 278.00 Obesity Unspec Office Visit 04/24/2008 2:45p Wilmer Laureano MD 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 Hemorrhoids seen on ansocopy likely the cause. patient will observe for now if there is further bleeding patient will [facility]
--- OUTSIDE RECORDS SUMMARY | 2018-05-03 20:13 | XMS REPORT | Continuity of Care Document ---
:1975 External Reference #:[id number] Author Name Rambo Duque Care Team Providers Name Role Phone Jenna Najera RPA Primary Care Physician Unavailable Payers Date Identification Numbers Payment Provider Subscriber Effective: 2017 Policy Number: [id number] [employer] Jonny Gordon PayID: [id number] [address] [place] [address] Policy Number: [id number] [employer] Jonny Gordon PayID: [id number] [address] [place] [address] Advance Directives Description No Information Available Problems Description No Information Family History Date Family Member(s) Observation Comments Father Esophagus Cancer Father Age:50 Mother CAD Social History Type Date Description Comments Sex Unknown Marital Status Lives With Lives With Children Occupation [employer] ETOH Use Socially Tobacco Use Start: Unknown Patient has never smoked Smoking Status Reviewed: 04/30/18 Patient has never smoked Allergies, Adverse Reactions, Alerts Date Description Reaction Status Severity Comments 04/30/2018 Codeine vomiting Active Medications Medication Date Status Form Strength Qnty SIG Indications Ordering Provider Benazepril HCL Active Tablets 40mg 90tabs 1 by Alex wolf , MD day Protonix Active Tablets DR 40mg 1 by Alex Velazco twice , MD every day Meloxicam 0 Active Tablets 15mg 1 by Unknown 000 mouth every day Immunizations Description No Information Available Vital Signs Date Vital Result Comment 04/30/2018 2:23pm Height 70 inches 5'10" Weight 325.00 lb Heart Rate 78 /min BP Systolic Sitting 132 mmHg lg. cuff BP Diastolic Sitting 82 mmHg lg. cuff O2 % BldC Oximetry 95 % BMI (Body Mass Index) 46.6 kg/m2 Results Description No Information Available Procedures Date Code Description Status 08/30/2016 [id number] Colonoscopy Completed 10/08/2008 [id number] Colonoscopy Completed 04/07/2008 [id number] Colonoscopy Completed Encounters Description No Information Available Plan of Treatment Future Appointment(s):11/01/2018 9:30 am - EUSEBIA De [facility] at [facility] Primary Care04/30/2018 - ROB [place] Essential (primary) hypertensionComments:Current medication(s): Benazepril 40mg dailyFollow up:6 ihobhbC88.9 Gastro-esophageal reflux disease without esophagitisComments: Current medication: Protonix 40mg BIDAllNew Medication:Benazepril HCL 40 mg - 1 by mouth every dayProtonix 40 mg - 1 by mouth twice every day
[2018-05-03 21:04] VITALS: BP 122/65
[2018-05-03] MEDS ORDERED: Sulfamethox/Trimethoprim DS 800/160* TAB PO ONE (21:18)
--- NOTE | 2018-05-03 21:24 | UC ---
Eye Complaint HPI - HPI Summary HPI Summary: patient had dental suregery last week, since then has had some swelling and pain of the lower eye lid and now the upper eye lid. - History of Current Complaint Chief Complaint: UCEye Stated Complaint: RT EYE COMPLAINT Time Seen by Provider: 05/03/18 21:10 Hx Obtained From: Patient Onset/Duration: Sudden Onset, Lasting Days Timing: Constant Severity Initially: Mild Severity Currently: Mild Pain Intensity: 3 Location of Injury: Eye Lid (lower), Eye Lid (upper), Periorbital Aggravating Factor(s): Nothing Alleviating Factor(s): Nothing Associated Signs And Symptoms: Positive: Drainage (Clear) - Allergies/Home Medications Allergies/Adverse Reactions: Allergies Allergy/AdvReac Type Severity Reaction Status Date / Time codeine Allergy Vomiting Verified 05/03/18 20:57 Home Medications: Home Medications Naproxen Sodium [Naproxen 220 mg] 440 mg PO DAILY PRN 05/03/18 [History Confirmed 05/03/18] PMH/Surg Hx/FS Hx/Imm Hx Previously Healthy: Yes - Surgical History Surgical History: Yes Surgery Procedure, Year, and Place: GALL BLADDER REMOVAL, HERNIA REPAIR A BABY. VASECTOMY AND HERNIA REPAIR-09/2014. Tendon repair right index finger - Family History Known Family History: Positive: Hypertension, Diabetes - Social History Alcohol Use: Rare Substance Use Type: None Smoking Status (MU): Never Smoked Tobacco Have You Smoked in the Last Year: No Review of Systems All Other Systems Reviewed And Are Negative: Yes Constitutional: Positive: Negative Skin: Positive: Negative Eyes: Positive: Other - lid swelling ENT: Positive: Negative Respiratory: Positive: Negative Cardiovascular: Positive: Negative Gastrointestinal: Positive: Negative Genitourinary: Positive: Negative Motor: Positive: Negative Neurovascular: Positive: Negative Musculoskeletal: Positive: Negative Neurological: Positive: Negative Psychological: Positive: Negative Is Patient Immunocompromised?: No Physical Exam Triage Information Reviewed: Yes Appearance: Well-Appearing, Well-Nourished, Pain Distress Vital Signs: Initial Vital Signs Temp 97.7 F 05/03/18 20:59 Pulse 81 05/03/18 20:59 Resp 18 05/03/18 20:59 BP 122/65 05/03/18 20:59 Pulse Ox 96 05/03/18 20:59 Vital Signs Reviewed: Yes Eye Exam: Normal Eyes: Positive: Discharge - clear, upper and lower lid swollen, redness of the inner corner of eye ENT Exam: Normal Dental Exam: Normal Neck exam: Normal Respiratory Exam: Normal Respiratory: Positive: Chest non-tender, Lungs clear, Normal breath sounds Cardiovascular Exam: Normal Cardiovascular: Positive: RRR, No Murmur, Pulses Normal, Bradycardia Bowel Sounds: Positive: Present Musculoskeletal Exam: Normal Neurological Exam: Normal Psychological Exam: Normal Skin Exam: Normal Eye Complaint Course/Dx - Course Course Of Treatment: hx obtained, exam performed ,meds reviewed, treated for periorbital cellulitis - Differential Dx/Diagnosis Differential Diagnosis/HQI/PQRI: Conjunctivitis, Periorbital Cellulitis Provider Diagnosis: Periorbital cellulitis Discharge - Sign-Out/Discharge Documenting (check all that apply): Patient Departure All imaging exams completed and their final reports reviewed: No Studies - Discharge Plan Condition: Stable Disposition: HOME Prescriptions: Sulfamethox/Trimethoprim DS* [Bactrim DS 800/160 TAB*] 1 tab PO BID #14 tab Patient Education Materials: Periorbital Cellulitis in Adults (ED) Referrals: Jenna Najera PA [Primary Care Provider] - Additional Instructions: 1. take the medication as prescribed. 2. If not improving in the next 2-3 days follow up with your eye doctor. - Billing Disposition and Condition Condition: STABLE Disposition: Home
== END 2018-05-03 21:24 | disposition home or self-care (01) ==
LOC: UCCORT 19:57
DX: L03.213 Periorbital cellulitis (principal); Z98.890 Other specified postprocedural states; Z88.5 Allergy status to narcotic agent
CPT/HCPCS: 99212; A9270-GY; G0463